=== PATIENT | male | born 1950 | race Caucasian/White ===

== ENCOUNTER 2016-10-27 13:31 | Emergency (ER) | payer OTHER ==
[~2016-10-27] VITALS: Ht 170.2 cm; Wt 88.7 kg
[2016-10-27 13:31] VITALS: TEMP 98.3; Ht 170.2 cm; Wt 88.7 kg
[~2016-10-27 13:31] MED LIST: AMLO10TA2 PO; FURO20TA4 PO; GLYB2.5T5 PO; METO50TA9 PO
--- OUTSIDE RECORDS SUMMARY | 2016-10-27 13:35 | XMS REPORT | Continuity of Care Document ---
Demographics Preferred Language Unknown Marital Status Unknown Scientologist Affiliation Unknown Race Unknown Ethnic Group Unknown Author Author [facility] Organization [facility] Address Unknown Phone Unavailable Allergies Active Description Code Type Severity Reaction Onset Reported/Identified Relationship to Patient Clinical Status Yes No Known Medication Allergies NKMA N/A N/A 12/08/2014 Medications Problems Procedures Results Encounters ACCT No. Visit Date/Time Discharge Status Pt. Type Provider Facility Loc./Unit Complaint [id number] 10/05/2015 15:07:00 Document Registration
--- OUTSIDE RECORDS SUMMARY | 2016-10-27 13:35 | XMS REPORT | Continuity of Care Document ---
Author Author [facility] Organization [facility] Address Unknown Phone Unavailable Support Name Relationship Address Phone MARTHA TODD Caregiver [address] [place] [address] Unavailable TOM BURGER MD Caregiver [address] [place] [id number] Unavailable HUMPHREY SANDS Next Of Kin [address] [place] [address] Insurance Providers Guarantor Lai Sands Address [address] [place] [address] Email DENIED 09-19-16 Payer [employer] Policy Number [id number] Subscriber's Name Lai Sands Relationship 18 Self Group Number [id number] Advance Directives Directive Response Recorded Date/Time Advanced Directives Type None 09/19/16 2:06pm Chief Complaint and Reason for Visit Chief Complaint General Reason for Visit Peripheral visual field defect Problems Past Problems Medical Problem Onset Date Peripheral visual field defect Unknown Medications Current Home Medications Medication Dose Units Route Directions Days Qty Instructions Start Date Amlodipine Besylate 10 Mg Tablet 10 Mg Oral Daily 09/19/16 Furosemide 20 Mg Tablet 20 Mg Oral Daily 09/19/16 Glyburide 2.5 Mg Tablet 2.5 Mg Oral Daily 09/19/16 Metoprolol Succinate (Toprol Xl) 50 Mg Tab.er.24h 50 Mg Oral Daily 09/19/16 Social History Query Response Start Date Stop Date Smoking Status Never smoker Hospital Discharge Instructions No hospital discharge instructions. Plan of Care Discharge Date 09/19/16 5:40pm Disposition 01 DISCHARGED HOME, SELF-CARE Condition at Discharge Stable Instructions/Education Provided Your Vision (GEN) Prescriptions See Medication Section Referrals TODD HERNANDEZ DO Address: [address] [place] [address] Additional Instructions/Education 1. Follow up with your eye doctor next week 2. Follow up with Dr. Hernandez next week Functional Status No functional status results. Allergies, Adverse Reactions, Alerts No known allergies. Immunizations Query Response on File Recorded Date/Time Influenza Vaccine Hx NO 09/19/16 2:57pm Vital Signs Acute Vital Signs Vital Response Date/Time Temperature (Fahrenheit) 97.4 deg F (96.8 - 99.1) 09/19/2016 5:40pm Temperature (Calculated Celsius) 36.11628 degrees C (36.0 - 37.3) 09/19/2016 5:40pm Pulse Rate (adult) 54 bpm (60 - 100) 09/19/2016 5:40pm Respiratory Rate 16 breaths/min (10 - 20) 09/19/2016 5:40pm O2 Sat by Pulse Oximetry 96 % (90 - 100) 09/19/2016 5:40pm Blood Pressure 134/77 mm Hg 09/19/2016 5:40pm Height (Feet) 5 feet 09/19/2016 2:06pm Height (Inches) 7.00 inches 09/19/2016 2:06pm Weight (Kilograms) 95.000 kg 09/19/2016 2:06pm Body Mass Index (BMI) 32.0 09/19/2016 2:06pm Results Name: LAI SANDS Unit #: [id number] : 1950 Sex: M Admit Date: Loc / Svc: ED Discharge Date: DIAGNOSTIC IMAGING REPORT Report #: [id number] [facility] Deon ALEJANDRA Indication: ITS.REASON: VISUAL CHANGE PROCEDURE: CT HEAD W/O CONTRAST: Encounter: Initial Comparison: None Technique: Axial CT images through the head were performed without contrast. Iterative Reconstruction dose reducing technique was utilized. FINDINGS: The ventricles are of normal size, shape, and contour for the patient's age. There are scattered areas of low attenuation in the white matter which most likely represent changes from chronic microvascular ischemia. The brainstem, cerebellum, and cerebral hemispheres otherwise have a normal morphology and CT attenuation. There is no evidence of midline displacement. No hemorrhage, signs of acute territorial stroke, mass effect, mass lesions, or edema is evident. The visualized portions of the skull base, midface, and calvarium demonstrate no abnormality. The paranasal sinuses are well aerated and free of significant disease. The tympanic and mastoid cavities appear normal. IMPRESSION: No acute intracranial abnormality or hemorrhage. If there is continued clinical concern for acute ischemia, MRI could be performed for further evaluation. . Procedures Procedure Status Date Provider(s) Ct neck spine w/o dye Completed 08/28/16 Encounters Encounter Location Arrival/Admit Date Discharge/Depart Date Attending Provider Departed Emergency Room [facility] 09/19/16 2:03pm 09/19/16 5: 40pm TOM BURGER MD Registered Clinic [facility] 08/28/16 4:21pm TODD HERNNADEZ DO Recent Diagnosis
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
[2016-10-27] MEDS ORDERED: NORMAL SALINE 1,000 ML IV ONE (13:51)
[2016-10-27] MEDS ORDERED: FELO10TA31 PO (14:00)
[2016-10-27] MEDS ORDERED: KETOROLAC 30mg/ml INJECTION IV ONE (14:00)
[2016-10-27] MEDS ORDERED: TAMS0.4C47 PO (14:00)
[2016-10-27] MEDS ORDERED: G.I. COCKTAIL 30ml PO ONE (14:00)
--- OUTSIDE RECORDS SUMMARY | 2016-10-27 14:02 | XMS REPORT | Continuity of Care Document ---
Demographics Preferred Language Unknown Marital Status Unknown Scientologist Affiliation Unknown Race Unknown Ethnic Group Unknown Author Author [facility] Organization [facility] Address Unknown Phone Unavailable Allergies Active Description Code Type Severity Reaction Onset Reported/Identified Relationship to Patient Clinical Status Yes No Known Medication Allergies NKMA N/A N/A 12/08/2014 Medications Problems Procedures Results Encounters ACCT No. Visit Date/Time Discharge Status Pt. Type Provider Facility Loc./Unit Complaint [id number] 10/05/2015 15:07:00 Document Registration
[2016-10-27 14:06] LABS: BASOPHILS % (AUTO) 0.6 % (0-2); EOSINOPHILS # (AUTO) 0.2 T/MM3 (0-0.5); EOSINOPHILS % (AUTO) 2.6 % (0-4); HCT - HEMATOCRIT 42.9 % (41-53); HGB - HEMOGLOBIN 14.6 GM/DL (13.5-17.5); IMMATURE GRANULOCYTE # (AUTO) 0.04 T/MM3 (0.00-0.03); IMMATURE GRANULOCYTE % (AUTO) 0.6 % (0.0-0.5); LYMPHOCYTES # (AUTO) 1.4 T/MM3 (1-4.8); LYMPHOCYTES % (AUTO) 21.6 % (23-45); MEAN CORPUSCULAR HGB 30.7 UUG (26-34); MEAN CORPUSCULAR VOLUME 90.1 UM3 (80-100); MEAN PLATELET VOLUME 9.1 UM3 (9.4-12.4); MONOCYTES # (AUTO) 0.5 T/MM3 (0-0.8); MONOCYTES % (AUTO) 8.5 % (0-9.0); NEUTROPHILS #(AUTO)-ABSOLUTE 4.1 T/MM3 (1.8-7.7); NEUTROPHILS % (AUTO) 66.1 % (33-66); RED BLOOD COUNT 4.76 M/MM3 (4.50-5.90); WBC - WHITE BLOOD COUNT 6.3 T/MM3 (4.5-11.0)
[2016-10-27 14:14] LABS: ALBUMIN 3.3 G/DL (3.5-5.0); ALBUMIN/GLOBULIN RATIO 1.2 RATIO (1.1-2.2); ALKALINE PHOSPHATASE 94 U/L (38-126); ALT (SGPT) 30 U/L (21-72); ANION GAP 9 MEQ/L (5-15); AST (SGOT) 19 U/L (17-59); BUN/CREATININE RATIO 31 RATIO (6-26); CALCIUM 8.2 MG/DL (8.4-10.2); CHLORIDE 104 MEQ/L (98-107); CO2 - CARBON DIOXIDE 28 MEQ/L (22-30); CREATININE 1.2 MG/DL (0.8-1.5); GLOMERULAR FILTRATION RATE 61; GLUCOSE 299 MG/DL (75-110); POTASSIUM 4.8 MEQ/L (3.6-5); SODIUM 141 MEQ/L (134-144); TOTAL PROTEIN 6.1 G/DL (6.3-8.2)
[2016-10-27 14:34] LABS: LIPASE 142 U/L (23-300)
--- NOTE | 2016-10-27 14:39 | DI ---
LOCATION OF DICTATION: [place] EXAM: CHEST, PA LATERAL HISTORY: ITS.REASON: reproducible bilateral chest pain COMPARISON: No prior studies available for comparison. FINDINGS: The heart size is normal. Mediastinal configuration is normal. There is bibasilar atelectasis or scarring. Limited depth of inspiration. There are no pleural effusions. There is no pneumothorax. Mild to moderate spondylosis of the thoracic spine with slight exaggerated thoracic kyphosis. IMPRESSION: 1. Limited depth of inspiration with bibasilar atelectasis or scarring suggested. 2. The heart size is normal. .
[2016-10-27] MEDS ORDERED: OMEP20CA10 PO (15:59)
[2016-10-27 16:16] VITALS: BP 112/64; PULSE 52; RESP 18; O2SAT 96
== END 2016-10-27 16:16 | disposition home or self-care (01) ==
LOC: ED 13:31
DX: R07.89 Other chest pain (principal); R10.13 Epigastric pain; E11.65 Type 2 diabetes mellitus with hyperglycemia; Z79.84 Long term (current) use of oral hypoglycemic drugs
CPT/HCPCS: 36000; 71020; 80053; 83690; 83880; 84484; 85025; 85379; 93005; 96361; 96374; 99284; J1885; J7030; J7999